=== PATIENT | female | born 1980 | race Caucasian/White ===

== ENCOUNTER → 2017-01-20 | Outpatient (CLI) | payer BC ==
[~2017-01-20] MED LIST: CALCTAB5 PO; MTRUNK PO; PRENTAB26 PO; SYN200 PO; TYLUNK PO
[2017-01-20 17:52] LABS: THYROID STIMULATING HORMONE 1.09 uIu/ml (0.300-4.500)
== END | disposition home or self-care (01) ==
LOC: C.LABPVFM 13:53
PROVIDERS: ATTEND Nurse Practitioner
DX: E89.0 Postprocedural hypothyroidism (principal)

== ENCOUNTER → 2017-07-27 | Outpatient (CLI) | payer OTHER | END | disposition home or self-care (01) | LOC: C.LAB 17:33 | PROVIDERS: ATTEND Nurse Practitioner | DX: E89.0 Postprocedural hypothyroidism (principal) ==

== ENCOUNTER → 2017-11-08 | Outpatient (CLI) | payer OTHER ==
[2017-11-08 17:31] LABS: BASO % 0.8 %; BASO ABS # 0.03 K/uL (0-0.2); EOS % 0.3 %; EOS ABS # 0.01 K/uL (0-0.5); HEMATOCRIT 41.4 % (37-47); HEMOGLOBIN 13.6 g/dL (12.0-16.0); LYMPH % 22.6 %; LYMPH ABS # 0.87 K/uL (1.2-3.4); MEAN CELL VOLUME 93.5 fL (80-100); MEAN CORPUSCULAR HEMOGLOBIN 30.7 pg (25-34); MEAN CORPUSCULAR HGB CONC 32.9 g/dl (32-36); MEAN PLATELET VOLUME 10.1 fL (7.4-10.4); MONO % 3.6 %; MONO ABS # 0.14 K/uL (0.11-0.59); NEUT % 72.7 %; PLATELET COUNT 264 K/uL (130-400); RED CELL DISTRIBUTION WIDTH CV 12.7 % (11.5-14.5); RED CELL DISTRIBUTION WIDTH SD 43.8 fL (36.4-46.3); WHITE BLOOD COUNT 3.85 K/uL (4.8-10.8)
== END | disposition home or self-care (01) ==
LOC: C.LABPVFM 12:03
PROVIDERS: ATTEND Nurse Practitioner
DX: L50.9 Urticaria, unspecified (principal)

== ENCOUNTER 2017-11-09 16:20 | Emergency (ER) | payer OTHER ==
[~2017-11-09] VITALS: Ht 177.8 cm; Wt 65.6 kg
[2017-11-09 16:46] VITALS: TEMP 36.6; Ht 177.8 cm; Wt 65.6 kg
[2017-11-09] MEDS ORDERED: FAMOTIDINE IV INJ 20 MG in DEXTROSE 5% 100ML 100 ML IV STA (17:06)
[2017-11-09] MEDS ORDERED: DiphenhydrAMINE HCL 50 MG/ML VIAL IV STA ×2 (17:06→18:41)
[2017-11-09] MEDS ORDERED: METHYLPREDNISOLONE 125 MG VIAL IV STA (17:06)
[2017-11-09] MEDS ORDERED: SODIUM CHLORIDE 0.9% 1000ML 1,000 ML IV ONE (17:15)
[2017-11-09 18:19] LABS: BASO % 0.3 %; BASO ABS # 0.02 K/uL (0-0.2); EOS % 0.4 %; EOS ABS # 0.03 K/uL (0-0.5); HEMATOCRIT 40.2 % (37-47); HEMOGLOBIN 13.7 g/dL (12.0-16.0); IG# 0.01 K/uL (0.00-0.02); LYMPH % 14.7 %; LYMPH ABS # 1.05 K/uL (1.2-3.4); MEAN CORPUSCULAR HGB CONC 34.1 g/dl (32-36); MEAN PLATELET VOLUME 9.7 fL (7.4-10.4); MONO % 5.5 %; MONO ABS # 0.39 K/uL (0.11-0.59); NEUT ABS # 5.65 K/uL (1.4-6.5); PLATELET COUNT 255 K/uL (130-400); RED CELL DISTRIBUTION WIDTH CV 12.3 % (11.5-14.5); WHITE BLOOD COUNT 7.15 K/uL (4.8-10.8)
[2017-11-09 18:46] LABS: ALBUMIN 4.2 gm/dl (3.4-5.0); CALCIUM 8.8 mg/dl (8.5-10.1); CREATININE 0.84 mg/dl (0.60-1.20)
[2017-11-09 18:51] LABS: TOTAL PROTEIN 8.3 gm/dl (6.4-8.2)
--- NOTE | 2017-11-09 19:10 | EMERGENCY ROOM VISIT NOTE ---
History First contact with patient: 16:52 Chief Complaint: ALLERGIC REACTION Stated Complaint: ALLERGIC REACTION Nursing Triage Summary: Patient with c/o allergic reaction to unknown source since last wednesday. Seen by PCP yesteday and given steroid injection continues with hives that are spreading. Denies SOB. Patient had been taking Benadryl for sleep and Zyrtec during the day. History of Present Illness The patient is a 37 year old female who presents to the Emergency Room with complaints of an allergic reaction for approximately 1 week. The rash started on her ears. It then spread to her chest. Patient saw her primary care physician earlier this week. She was prescribed prednisone, which she has been taking as prescribed. She has also been taking Zyrtec and Benadryl with minimal relief. She denies any difficulty swallowing. she denies any difficulty breathing. She denies any new soaps, lotions or detergents. No recent travel. No lesions of her palms or soles. Review of Systems 10 system review performed and negative unless noted in HPI or below Past Medical/Surgical History Hypothyroidism Social History Smoking Status: Never Smoker Marital Status: Housing Status: lives with family Current/Historical Medications Scheduled Acetaminophen (Tylenol Unknown Dose), 1 DOSE PO UD Calcium (Caltrate), MG PO DAILY Ibuprofen (Motrin Unknown Dose), 1 DOSE PO UD Levothyroxine (Synthroid *), 0.2 MG PO DAILY Multivit/Min/Iron/Fol Ac/Pren ( Vitamin), 1 TAB PO DAILY Physical Exam Vital Signs Date Time Temp Pulse Resp B/P (MAP) Pulse Ox O2 Delivery O2 Flow Rate FiO2 11/09/17 19:26 72 17 111/62 98 11/09/17 18:24 47 11/09/17 17:43 57 130/82 100 Room Air 11/09/17 16:48 Room Air 11/09/17 16:46 36.6 68 18 158/96 100 Room Air Physical Exam VITALS: Vitals are noted on the nurse's note and reviewed by myself. Vital signs stable. GENERAL: 37-year-old female, in no acute distress, nondiaphoretic, well- developed well-nourished. SKIN: Erythematous, slightly raised, blanching rash noted to the anterior chest and to the axilla spreading distally down to the waist bilaterally. No involvement of the palms or soles. No lesions in the mouth. HEAD: Normocephalic atraumatic. MOUTH: Mucous membranes moist. No swelling of the oral mucosa NECK: Supple without nuchal rigidity. No lymphadenopathy. Cervical spine is nontender. No JVD. HEART: Regular rate and rhythm without murmurs gallops or rubs. LUNGS: Clear to auscultation bilaterally without wheezes, rales or rhonchi. No accessory muscle use. MUSCULOSKELETAL: No muscle atrophy, erythema, or edema noted. Strength 5/5 throughout. NEURO: Patient was alert and oriented to person place and time. Normal sensation to touch. No focal neurological deficits. Medical Decision & Procedures Laboratory Results 11/09/17 17:40 Red Blood Count 4.42, Mean Corpuscular Volume 91.0, Mean Corpuscular Hemoglobin 31.0, Mean Corpuscular Hemoglobin Concent 34.1, Mean Platelet Volume 9.7, Neutrophils (%) (Auto) 79.0, Lymphocytes (%) (Auto) 14.7, Monocytes (%) (Auto) 5.5, Eosinophils (%) (Auto) 0.4, Basophils (%) (Auto) 0.3, Neutrophils # (Auto) 5.65, Lymphocytes # (Auto) 1.05, Monocytes # (Auto) 0.39, Eosinophils # (Auto) 0.03, Basophils # (Auto) 0.02 11/09/17 17:40 11/09/17 18:51 Test 11/09/17 17:40 11/09/17 18:51 White Blood Count 7.15 K/uL (4.8-10.8) Red Blood Count 4.42 M/uL (4.2-5.4) Hemoglobin 13.7 g/dL (12.0-16.0) Hematocrit 40.2 % (37-47) Mean Corpuscular Volume 91.0 fL (80-100) Mean Corpuscular Hemoglobin 31.0 pg (25-34) Mean Corpuscular Hemoglobin Concent 34.1 g/dl (32-36) Platelet Count 255 K/uL (130-400) Mean Platelet Volume 9.7 fL (7.4-10.4) Neutrophils (%) (Auto) 79.0 % Lymphocytes (%) (Auto) 14.7 % Monocytes (%) (Auto) 5.5 % Eosinophils (%) (Auto) 0.4 % Basophils (%) (Auto) 0.3 % Neutrophils # (Auto) 5.65 K/uL (1.4-6.5) Lymphocytes # (Auto) 1.05 K/uL (1.2-3.4) Monocytes # (Auto) 0.39 K/uL (0.11-0.59) Eosinophils # (Auto) 0.03 K/uL (0-0.5) Basophils # (Auto) 0.02 K/uL (0-0.2) RDW Standard Deviation 41.0 fL (36.4-46.3) RDW Coefficient of Variation 12.3 % (11.5-14.5) Immature Granulocyte % (Auto) 0.1 % Immature Granulocyte # (Auto) 0.01 K/uL (0.00-0.02) Anion Gap 4.0 mmol/L (3-11) Est Creatinine Clear Calc Drug Dose 95.9 ml/min Estimated GFR () 103.6 Estimated GFR (Non- 89.4 BUN/Creatinine Ratio 13.8 (10-20) Calcium Level 8.8 mg/dl (8.5-10.1) Total Bilirubin 0.4 mg/dl (0.2-1) Alanine Aminotransferase (ALT/SGPT) 26 U/L (12-78) Alkaline Phosphatase 53 U/L (45-117) Total Protein 8.3 gm/dl (6.4-8.2) Albumin 4.2 gm/dl (3.4-5.0) Globulin 4.1 gm/dl (2.5-4.0) Albumin/Globulin Ratio 1.0 (0.9-2) Aspartate Amino Transf (AST/SGOT) 17 U/L (15-37) Human Chorionic Gonadotropin, Qual NEG (NEG) Medications Administered Medications (Trade) Dose Ordered Sig/[place] Route Start Time Stop Time Status Last Admin Dose Admin Methylprednisolone Sodium Succinate (Solu-Medrol IV) 125 mg NOW STAT IV 11/09/17 17:06 11/09/17 17:08 DC 11/09/17 17:38 125 MG Diphenhydramine HCl (Benadryl Inj) 25 mg NOW STAT IV 11/09/17 17:06 11/09/17 17:09 DC 11/09/17 17:38 25 MG Famotidine 20 mg/ Dextrose 102 ml @ 200 mls/hr ONE STAT IV 11/09/17 17:06 11/09/17 17:36 DC 11/09/17 17:42 200 MLS/HR Sodium Chloride 1,000 ml @ 999 mls/hr Q1H1M ONCE IV 11/09/17 17:15 11/09/17 18:15 DC 11/09/17 17:38 999 MLS/HR Diphenhydramine HCl (Benadryl Inj) 25 mg NOW STAT IV 11/09/17 18:41 11/09/17 18:43 DC 11/09/17 18:41 25 MG ED Course Patient was seen and examined Vital signs including blood pressure were reviewed medications list was verified with patient Labs were obtained, and a saline lock was established The patient was medicated with Solu-Medrol 125 mg IV. She was also given Pepcid 20 mg IV and Benadryl 25 mg IV. She was hydrated with 1 L of normal saline. Upon reevaluation, the patient's itching was slightly better. She was given an additional dose of Benadryl 25 mg IV We reviewed her labs. She voiced understanding. I reviewed discharge instructions the patient. They voiced understanding and had no further questions. Medical Decision Differential diagnosis: Allergic reaction, angioedema, anaphylaxis This patient is a 37-year-old female that presents to the emergency department with an itchy rash for the last several days to a week. On exam, she had hives particularly on her chest and torso. She did not have any signs of angioedema or anaphylaxis. There was no involvement of her face. The patient's vital signs were stable. The etiology of the reaction is unclear. She is unfortunately already taking prednisone 60 mg daily. To this regimen, I encouraged the patient to take Benadryl 50 mg every 8 hours for the next 24 hours. We also added ranitidine. The patient was medicated with Benadryl, ranitidine and Solu-Medrol in the emergency department with fair symptomatic relief. I believe she is stable to be discharged home. She will need close follow-up. She was referred to an technical specialist cytogenetics. She was also encouraged to return to the ED with any new or worsening symptoms This chart was completed in part utilizing [employer] Voice Recognition software. Attempts were made to minimize the grammatical errors, random word insertions, pronoun errors and incomplete sentences. Any formal questions or concerns about the content, text or information contained within the body of this dictation should be directly addressed to the provider for clarification. Medication Reconcilliation Current Medication List: was personally reviewed by me Blood Pressure Screening Patient's blood pressure: Normal blood pressure Impression Primary Impression: Allergic reaction Departure Information Dispostion Home / Self-Care Condition GOOD Referrals Stormy Melgoza C.R.N.P (PCP) Patient Instructions My [facility] Additional Instructions Please continue prednisone as prescribed Please take Benadryl 50 mg every 8 hours for at least the next 24 hours. Then, please take Benadryl as needed every 8 hours. Please take Zantac 1 tab twice daily for the next 5-7 day Please avoid getting overheated as this can make the rash and itching worse. Lukewarm showers. Sleep with minimal blankets. Please follow-up with your primary care physician within the next 24-48 hours for recheck Please call the technical specialist cytogenetics for an appointment. A number has been provided. Please do not hesitate to return to the emergency department with any new, worsening or concerning symptoms; especially, swelling of the face, lips, tongue , difficulty breathing or swallowing Work Instructions Return To Work: 2 days
[2017-11-09 19:26] VITALS: BP 111/62; PULSE 72; O2SAT 98
[2017-11-09 19:32] LABS: POTASSIUM 3.9 mmol/L (3.5-5.1)
== END 2017-11-09 19:27 | disposition home or self-care (01) ==
LOC: C.EDB 16:21 → C.EDD 19:27
DX: T78.40XA Allergy, unspecified, initial encounter (principal); L50.0 Allergic urticaria; E03.9 Hypothyroidism, unspecified; X58.XXXA Exposure to other specified factors, initial encounter; Z79.899 Other long term (current) drug therapy